=== PATIENT | female | born 1995 | race African-American/Black ===

== ENCOUNTER 2017-07-08 17:42 | Emergency (ER) | payer MEDICAID, SELFPAY ==
[2017-07-08 18:51] LABS: Urine Blood TRACE (NEG); Urine Glucose NEGATIVE (NEG); Urine Protein NEGATIVE (NEG); Urine pH 6.5 (5.0-7.0)
[2017-07-08 19:00] LABS: Urine Bacteria 20-50 /HPF (<20); Urine Culture Reflex Order REFLEXED; Urine RBC <5 /HPF (NONE SEEN)
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
--- NOTE | 2017-07-08 19:29 | RAD REPORT ---
EXAM DESCRIPTION: RAD - Ankle Left 3 View -07/08/2017 7:22 pm CLINICAL HISTORY: Left ankle pain status post injury FINDINGS: No fracture or dislocation is seen.
--- NOTE | 2017-07-08 19:31 | RAD REPORT ---
EXAM DESCRIPTION: RAD - Foot Left 3 View - 07/08/2017 7:21 pm CLINICAL HISTORY: Left Foot pain status post fall FINDINGS: No fracture or dislocation is seen.
--- NOTE | 2017-07-08 19:33 | RAD REPORT ---
EXAM DESCRIPTION: RAD - Wrist Right 3 View - 07/08/2017 7:22 pm CLINICAL HISTORY: Right wrist pain status post injury FINDINGS: No fracture or dislocation is seen. If the patient continues to have symptoms to suggest a n occult fracture then a followup plain film series in 7 days would be recommended.
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
== END 2017-07-08 19:57 | disposition home or self-care (01) ==
LOC: ER 17:42
DX: M25.572 Pain in left ankle and joints of left foot (principal); M25.531 Pain in right wrist; V49.9XXA Car occupant (driver) (passenger) injured in unspecified traffic accident, initial encounter; Z91.048 Other nonmedicinal substance allergy status
CPT/HCPCS: 70450; 72125; 81003; 81015; 81025; 87077; 87086; 87088; 87186; 99285